=== PATIENT | female | born 1975 ===

== ENCOUNTER 2017-04-06 09:27 | Day surgery (SDC) | payer OTHER ==
[2017-04-06 09:36] VITALS: BMI 30.4
[2017-04-06 10:14] LABS: HEMOGLOBIN 12.7 g/dL (12.0-16.0); MEAN CELL VOLUME 75.7 fl (81.0-99.0); MEAN CORPUSCULAR HEMOGLOBIN 24.5 pg (27.0-31.0); MEAN CORPUSCULAR HGB CONC 32.4 g/dL (33.0-37.0); RBC 5.19 Mil/uL (3.80-5.20); RED CELL DISTRIBUTION WIDTH 15.4 % (11.5-14.5); WHITE BLOOD COUNT 8.5 K/uL (4.8-10.8)
[2017-04-06] MEDS ORDERED: Lactated Ringer's 1,000 ML IV ONE ×3 (10:40→17:09)
[2017-04-06] MEDS ORDERED: Propofol 10 mg/ml Inj (20 ML) ONE (12:40)
[2017-04-06] MEDS ORDERED: ePHEDrine 50 mg/ml Inj ONE (12:40)
[2017-04-06] MEDS ORDERED: Midazolam 2 MG/2 ML VIAL ONE (12:40)
[2017-04-06] MEDS ORDERED: Rocuronium 10 mg/ml (5 ml) ONE (12:41)
[2017-04-06] MEDS ORDERED: Succinylcholine 200 mg/10 ml Inj IV ONE (12:41)
[2017-04-06] MEDS ORDERED: Bupivacaine 0.5% Inj(30mL) ONE (13:18)
[2017-04-06] MEDS ORDERED: Dexamethasone 4 mg/1 ml ONE (14:20)
[2017-04-06] MEDS ORDERED: Lidocaine 1% Inj (20ml) IJ ONE (14:35)
[2017-04-06] MEDS ORDERED: Bupivacaine 0.5% 50 ML IJ ONE (14:35)
[2017-04-06] MEDS ORDERED: Neostigmine Methylsulfate 2 MG/2 ML ML IV ONE (15:03)
[2017-04-06] MEDS ORDERED: HYDROmorphone 0.5 mg/0.5 ml ISec IVP PRN (15:33)
[2017-04-06] MEDS ORDERED: Lactated Ringer's 1,000 ML IV SCH (15:33)
[2017-04-06] MEDS ORDERED: Oxycodone/Acetaminophen 5/325 mg Tab PO PRN (16:32)
[2017-04-06 17:30] VITALS: O2SAT 100
[2017-04-06 17:34] VITALS: RESP 18
[2017-04-06 18:24] VITALS: BP 121/78; PULSE 87; TEMP 98.6
--- NOTE | 2017-04-10 11:26 | OP ---
PROCEDURE DATE: 04/06/2017 SURGEON: Diogenes Oh MD. GARDENING MANAGER: Dr. Bj Lion. PROCEDURE PERFORMED: Robotic lysis of adhesions. PREOPERATIVE DIAGNOSES: Endometriosis with abdominal pain. POSTOPERATIVE DIAGNOSES: Endometriosis with abdominal pain. ANESTHESIA: General. ANESTHESIOLOGIST: Dr. Kelly. ESTIMATED BLOOD LOSS: Minimal. SPECIMEN SENT: None. BRIEF HISTORY: This is a 42-year-old woman who had already been brought to the operating room by Dr. Bj Lion for endometriosis (separate dictation, Dr. Bj Lion). Dr. Lion asked me to enter the operating room when he noticed that there were multiple adhesions obstructing the pelvic floor. At this point, I entered the operating room, took over the robotic device, and extensive lysis of adhesions to the sigmoid from the lateral aspect of the peritoneum into the pelvic floor were done with blunt and sharp dissection with meticulous attention to hemostasis with electrocautery. Once the sigmoid was appropriately retracted and lysed, it was brought away from the field to allow for access into the pelvic floor fopr Dr. Lion to continue his portion of the operation. At this point, the operation was then turned over back to Dr. Bj Lion (separate dictation, Dr. Lion). Diogenes Oh MD cc: [id number] TT: 04/10/2017 11:25:00 mn [id number]
--- NOTE | 2017-04-26 15:36 | PCM.OP ---
Operative Report - Operative Report Date of Surgery/Procedure: 04/06/17 Time of Surgery/Procedure: 08:00 Surgeon: Dr. Bj Lion MD Psychological Assistant: Dr. 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 The patient was examined in the office and the exam confirmed specific point tenderness and ultrasonographic examination was suggestive of pelvic adhesions. Prior to the surgery the patient consented to the procedure, with an understanding for the surgery to identify the cause of the pain and as well as the likelihood of successful outcome, alternative modality of treatment, and potential risks. The patient had ample opportunity to ask and receive answers for the questions. The patient was then counselled for understanding of the potential risk of the procedure including but not limited to bleeding, infection , bladder and bowel perforation, and pelvic abscess. Operative Findings: Adhesionswere present There was endometriosis visualised , mostly affecting the left of the side wall, the posterior cul de sac which was partially and the anterior bladder. The first part of the procedure involved the help of General Surgeon, Dr. Diogenes Oh, because the vision was limited due to significant bowel adhesions. (he will dictate this separately). Procedure/Operation Description: After the consent was finally obtained the patient was brought to the operating room and placed on the operating table in the supine position. An IV catheter was started, antibiotics were administered. After satisfactory anesthesia was induced the patient was positioned in the dorsolithotomy position with extreme care that all areas prone to pressure would be padded. The exterior genitalia and the abdomen were thoroughly prepped and draped in the standard manner. A timeout was performed; at this point the cystoscope was introduced to the bladder under direct vision. Pancystoscopy was performed and attention was paid to both ureteral orifices, which were in the normal anatomical position. The left ureteral orifice was catheterized with a Arabic open ended ureteral catheter. A solution of ICG was then injected for a total of 5 mL in the left ureter and after that the ureteral catheter was advanced into the distal ureter. The ureteral catheter was then removed. . Attention was paid to the right ureteral orifice, at this point a ureteral catheter was advanced into the level of the right distal ureter and an addition of 5mL of IC-Green was injected into the right ureter. The ureteral catheter was then removed. The bladder was then; inspected and noted to be free of tumor , stone or bleeding sources. The cystoscope was then removed and the 16 Arabic jay catheter was placed. . At this point attention was placed on the vaginal area, where the speculum was placed in the vagina, the anterior lip of the cervix was grasped. The cervix was dilated and a hysteroscope was inserted in the uterine cavity. The cavity appeared to be normal with absence of polyps or fibroids. At this point after placing a valve to uterine manipulator in the uterus attention was on the abdomen. An incision was made below the umbilicus with a standard open laparoscopy technique; the abdominal cavity was entered in a blunt fashion. Trocar was then inserted, the abdomen was insufflated. After insufflating the abdominal cavity under direct vision, 3 additional Trocar were inserted: right lower quadrant, left mid quadrant, and right upper quadrant. At this point the da Lucien robot was brought onto the field and docked and the procedure was commenced. A thick band of adhesions was present attaching let left ovary to the anterior abdominal wall. This was excised and the ovary was freed. Ath tis point Dr. Linder excised the sigmoid adhesions. There was evidence of endometriosis implant on the left pelvic side wall. At this point the peritoneum at the pelvic ring was elevated and entered and the retroperitoneal space was entered. The ureter was identified utilizing fluorescent technology and a full ureterolysis was performed. At this point, through this step by step dissection, from the pelvic ring to the ovarian fossa , allowed separation of very thick adhesions that also involved the lower sigmoid colon. There infiltrating endometriosis . This probably was the cause of most the patient's symptoms with regards to pelvic pain and bowel problems. A very careful excision was then performed of a large area swath of peritoneum containing invasive endometriosis in this area. Additionally, a progressive dissection was performed in the ovarian fossa. The posterior cervicx appeard inflamed and was vaporized utiilizing electrocutery. . At this point, attention was on the anterior aspect of the uterus where a large implant of endometriosis was identified to be on the bladder. This area of endometriosis was progressively dissected with great care not to enter the mucosa of the bladder. The whole area was excised in full and sent to pathology for examination. At this point we checked for hemostasis which appeared to be excellent. Additionally, an area of endometriosis was found in the right uterosacral area and after identifying the ureter the ureter was dissected laterally and an area of endometriosis from the right uterosacral area was excised and also sent to pathology. Again it was checked for hemostasis which appeared to be excellent. At this point the robot was undocked. The abdomen was desufflated. All instruments were removed. The incision was closed in layers utilizing 0 PDS for the fascia and 4-O marker for the skin. Estimated Blood Loss: 15cc Drains: Jay catheter Complications: None Specimen: Multiple samples of endometriosis containing tissue sent to pathology. Discharge & Condition: At the end of the procedure, all papers and instruments and counts were correct. The patient was taken to the recovery room in excellent condition.
--- NOTE | 2017-05-05 08:17 | OP ---
Surgeon: Dr. Bj Lion MD Skidder Operator: Dr. Diogenes Oh MD Procedure Date: 04/06/17 Procedure Performed: Cystoscopy with bilateral ureteral catheterization, retrograde injection of IC-GREEN into right and left ureter, diagnostic hysteroscopy, laparoscopy, robotic da Lucien excision of endometriosis, ovariolysis, left ureterolysis, and excision of anterior bladder mass ( separately Dr. Oh will dictate a lysis of adhesions). 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 Complications: None Sample: Multiple samples of endometriosis containing tissue sent to pathology. Drains: Jay catheter Estimated blood loss: 15 cc Indications for the procedure: This patient is a 42 year-old female with long ongoing history of known endometriosis, dysmenorrhea, dyspareunia and pelvic pain. The patient was examined in the office and the exam confirmed specific point tenderness and ultrasonographic examination was suggestive of pelvic adhesions. Prior to the surgery the patient consented to the procedure, with an understanding for the surgery to identify the cause of the pain and as well as the likelihood of successful outcome, alternative modality of treatment, and potential risks. The patient had ample opportunity to ask and receive answers for the questions. The patient was then counselled for understanding of the potential risk of the procedure including but not limited to bleeding, infection , bladder and bowel perforation, and pelvic abscess. Description of the procedure: After the consent was finally obtained the patient was brought to the operating room and placed on the operating table in the supine position. An IV catheter was started, antibiotics were administered. After satisfactory anesthesia was induced the patient was positioned in the dorsolithotomy position with extreme care that all areas prone to pressure would be padded. The exterior genitalia and the abdomen were thoroughly prepped and draped in the standard manner. A timeout was performed; at this point the cystoscope was introduced to the bladder under direct vision. Pancystoscopy was performed and attention was paid to both ureteral orifices, which were in the normal anatomical position. The left ureteral orifice was catheterized with a Uzbek open ended ureteral catheter. A solution of ICG was then injected for a total of 5 mL in the left ureter and after that the ureteral catheter was advanced into the distal ureter. The ureteral catheter was then removed. Attention was paid to the right ureteral orifice, at this point a ureteral catheter was advanced into the level of the right distal ureter and an addition of 5mL of IC-Green was injected into the right ureter. The ureteral catheter was then removed. The bladder was then; inspected and noted to be free of tumor , stone or bleeding sources. The cystoscope was then removed and the 16 Uzbek jay catheter was placed. At this point attention was placed on the vaginal area, where the speculum was placed in the vagina, the anterior lip of the cervix was grasped. The cervix was dilated and a hysteroscope was inserted in the uterine cavity. The cavity appeared to be normal with absence of polyps or fibroids. At this point after placing a valve to uterine manipulator in the uterus attention was on the abdomen. An incision was made below the umbilicus with a standard open laparoscopy technique; the abdominal cavity was entered in a blunt fashion. Trocar was then inserted, the abdomen was insufflated. After insufflating the abdominal cavity under direct vision, 3 additional Trocar were inserted: right lower quadrant, left mid quadrant, and right upper quadrant. At this point the da Lucien robot was brought onto the field and docked and the procedure was commenced. Findings: There was an extensive endometriosis visualised on both, mostly affecting the left of the side wall, the posterior cul de sac which was partially obliterated and the interior bladder. The first part of the procedure involved the help of General Surgeon, Dr. Diogenes Oh, because the vision was extracted due to significant bowel adhesions. Dr. Oh also helped in freeing the colon from the posterior cul de sac (he will dictate this separately ). There was evidence of endometriosis implant on the left pelvic side wall. At this point the peritoneum at the pelvic ring was elevated and entered and the retroperitoneal space was entered. The ureter was identified utilizing fluorescent technology and a full ureterolysis was performed. At this point, through this step by step dissection, from the pelvic ring to the ovarian fossa , allowed separation of very thick adhesions that also involved the lower sigmoid colon. There was a thick infiltrating endometriosis area that completely subverted the anatomy. This probably was the cause of most the patient's symptoms with regards to pelvic pain and bowel problems. A very careful excision was then performed of a large area swath of peritoneum containing invasive endometriosis in this area. Additionally, a progressive dissection was performed in the ovarian fossa. Dissecting all the perineum affected by the infiltrating endometriosis. The posterior cervical aspect of the uterus was also dissected and the cul de sac was partially obliterated an excessive excision was performed freeing the rectosigmoid from the posterior aspect of the uterus. This was done with the aid of Dr. Oh from General Surgery. At this point, after the whole area of endometriosis was excised with a very laborious and difficult excision, the check for hemostasis appeared to be excellent as well as integrity of the colon which appeared to be in good condition. At this point, attention was on the anterior aspect of the uterus where a large implant of endometriosis was identified to be on the bladder. This area of endometriosis was progressively dissected with great care not to enter the mucosa of the bladder. The whole area was excised in full and sent to pathology for examination. At this point we checked for hemostasis which appeared to be excellent. Additionally, an area of endometriosis was found in the right uterosacral area and after identifying the ureter the ureter was dissected laterally and an area of endometriosis from the right uterosacral area was excised and also sent to pathology. Again it was checked for hemostasis which appeared to be excellent. At this point the robot was undocked. The abdomen was desufflated. All instruments were removed. The incision was closed in layers utilizing 0 PDS for the fascia and 4-O marker for the skin. At the end of the procedure, all papers and instruments and counts were correct. The patient was taken to the recovery room in excellent condition. MD RANDELL Shea
== END 2017-04-06 18:47 | disposition home or self-care (01) ==
LOC: H.OPSURG 09:27
PROVIDERS: ATTEND Obstetrics & Gynecology Reproductive Endocrinology
DX: N80.0 Endometriosis of uterus (principal); J45.909 Unspecified asthma, uncomplicated; E03.9 Hypothyroidism, unspecified; K66.0 Peritoneal adhesions (postprocedural) (postinfection); N94.6 Dysmenorrhea, unspecified; R10.2 Pelvic and perineal pain